=== PATIENT | male | born 1950 | race American Indian/Alaskan Native ===

== ENCOUNTER 2018-04-19 14:50 | Inpatient (IN) | payer MEDICARE, OTHER | END 2018-05-01 12:55 | disposition still patient (30) | LOC: ADULT MH 14:50 | DX: F30.9 Manic episode, unspecified (principal); G47.33 Obstructive sleep apnea (adult) (pediatric); N40.0 Benign prostatic hyperplasia without lower urinary tract symptoms; E03.9 Hypothyroidism, unspecified ==